=== PATIENT | male | born 2005 | race African-American/Black ===

== ENCOUNTER 2023-05-26 09:20 | Emergency (ER) | payer OTHER ==
[~2023-05-26] VITALS: Ht 172.7 cm; Wt 51.2 kg
[2023-05-26 11:07] VITALS: BP 110/76
== END 2023-05-26 11:09 | disposition other institution, planned readmission (95) ==
LOC: ED 09:20
DX: Z02.89 Encounter for other administrative examinations (principal)
CPT/HCPCS: 99284